=== PATIENT | female | born 1965 | race Caucasian/White ===

== ENCOUNTER 2021-04-26 05:40 | Inpatient (IN) | payer MEDICAID ==
[~2021-04-26] VITALS: Ht 157.5 cm; Wt 54.4 kg
[2021-04-26] MEDS ORDERED: HALOPERIDOL LACTATE 5MG/ML VIAL IM ONE (07:15)
[2021-04-26 08:17] LABS: CHLORIDE 106 mEq/L (98-107)
[2021-04-26 08:25] LABS: ETHANOL BLOOD < 10 mg/dL
[2021-04-26 08:37] LABS: HEMATOCRIT. 42.9 % (36.0-48.0); HEMOGLOBIN. 14.2 g/dL (12.0-16.0); MEAN CORPUSCULAR HEMOGLOBIN 30.5 pg (28.0-32.0); MEAN CORPUSCULAR VOLUME 92.4 fL (81.0-99.0); MEAN PLATELET VOLUME 10.4 fl (7.4-10.4); PLATELET 250 x1000/uL (130-400); RED BLOOD CELL COUNT 4.65 mill/uL (4.2-5.4); RED CELL DISTRIBUTION WIDTH 14.2 % (11.6-14.6)
[2021-04-26 09:05] LABS: PLATELET ESTIMATE NORMAL
[2021-04-26] MEDS ORDERED: TETANUS, DIPHTHERIA, PERTUSSIS VAC/PF 0.5ML (>10YR OLD) IM ONE (11:45)
[2021-04-26] MEDS ORDERED: FLUORESCEIN SODIUM 1MG/STRIP BOTHEYE ONE (11:45)
[2021-04-26] MEDS ORDERED: TETRACAINE 0.5% OPHTH DROPS 4ML BOTHEYE ONE (11:45)
[2021-04-26 13:24] LABS: CLARITY URINE CLEAR (CLEAR); COLOR URINE YELLOW (YELLOW); KETONES URINE NEGATIVE (NEGATIVE); LEUKOCYTE ESTERASE URINE TRACE (NEGATIVE); NITRITE URINE NEGATIVE (NEGATIVE); OCCULT BLOOD URINE NEGATIVE (NEGATIVE); PH URINE 8.5 (4.5-8.0); PROTEIN URINE NEGATIVE (NEGATIVE); SPECIFIC GRAVITY URINE 1.014 (1.005-1.030); UROBILINOGEN URINE 0.2 E.U./dL (0.2-1.0)
[2021-04-26 13:40] LABS: *AMPHETAMINES SCREEN URINE NEGATIVE (NEGATIVE); *BARBITURATES SCREEN URINE NEGATIVE (NEGATIVE); *BENZODIAZEPINES SCREEN URINE NEGATIVE (NEGATIVE); *COCAINE SCREEN URINE PRESUMTIVE POSITIVE (NEGATIVE)
[2021-04-26 13:41] LABS: CANNABINOID URINE SCREEN NEGATIVE (NEGATIVE); METHADONE URINE SCREEN NEGATIVE (NEGATIVE); OPIATES URINE SCREEN NEGATIVE (NEGATIVE); PHENCYCLIDINE URINE SCREEN NEGATIVE (NEGATIVE)
[2021-04-26] MEDS ORDERED: ONDANSETRON HCL 4MG/2ML INJ IV STA (16:02)
[2021-04-26] MEDS ORDERED: FAMOTIDINE 20MG/2ML VIAL IV NR (16:15)
[2021-04-26] MEDS ORDERED: SODIUM CHLORIDE 0.9% 1,000 ML IV ONE (16:15)
[2021-04-26 22:25] VITALS: BP 138/72
[2021-04-26 22:30] VITALS: BP 138/72
[2021-04-26] MEDS ORDERED: LORAZEPAM 2MG/ML CPJ IV PRN (23:15)
[2021-04-26] MEDS ORDERED: ONDANSETRON HCL 4MG/2ML INJ IV PRN (23:15)
[2021-04-27] VITALS: BP 128/71
[2021-04-27] MEDS: SODIUM CHLORIDE 0.9% 1,000 ML IV SCH ×3 (00:28→21:21)
[2021-04-27 04:00] VITALS: BP 116/77
[2021-04-27 07:27] LABS: CHLORIDE 111 mEq/L (98-107)
[2021-04-27 07:30] LABS: BASOPHILS % 0.7 % (0.0-2.0); HEMATOCRIT. 42.6 % (36.0-48.0); LYMPHOCYTES % 12.1 % (20.0-50.0); MEAN CORPUSCULAR HEMOGLOBIN 30.8 pg (28.0-32.0); MEAN CORPUSCULAR VOLUME 93.9 fL (81.0-99.0); MEAN PLATELET VOLUME 11.2 fl (7.4-10.4); MONOCYTES % 6.4 % (2.0-8.0); NEUTROPHILS % 79.8 % (40.0-76.0); PLATELET 194 x1000/uL (130-400); RED BLOOD CELL COUNT 4.54 mill/uL (4.2-5.4); RED CELL DISTRIBUTION WIDTH 14.4 % (11.6-14.6)
[2021-04-27 08:00] VITALS: BP 115/65
[2021-04-27] MEDS: PANTOPRAZOLE SODIUM 40 MG/VIAL IV SCH (09:53)
[2021-04-27 12:00] VITALS: BP 137/77
[2021-04-27 16:00] VITALS: BP 110/73
[2021-04-27 20:00] VITALS: BP 111/68
[2021-04-28] VITALS: BP 137/75
[2021-04-28 04:00] VITALS: BP 116/62
[2021-04-28] MEDS: SODIUM CHLORIDE 0.9% 1,000 ML IV SCH ×2 (04:59→15:35)
[2021-04-28 08:00] VITALS: BP 122/65
[2021-04-28] MEDS: PANTOPRAZOLE SODIUM 40 MG/VIAL IV SCH (08:33)
[2021-04-28 12:00] VITALS: BP 108/69
[2021-04-28 16:00] VITALS: BP 109/65
[2021-04-28] MEDS: ACETAMINOPHEN 325MG TABLET PO PRN (18:03)
[2021-04-28 20:00] VITALS: BP 128/69
[2021-04-29] VITALS: BP 121/60
[2021-04-29 04:00] VITALS: BP 124/77
[2021-04-29] MEDS: SODIUM CHLORIDE 0.9% 1,000 ML IV SCH ×3 (05:21→22:00)
[2021-04-29 08:00] VITALS: BP_SYST 115; BP_SYST 132; BP_DIAS 60; BP_DIAS 73
[2021-04-29] MEDS: FAMOTIDINE 20MG TABLET PO SCH ×2 (08:56→20:00)
[2021-04-29 12:05] VITALS: BP 114/60
[2021-04-29] MEDS: ACETAMINOPHEN 325MG TABLET PO PRN (12:21)
[2021-04-29 16:00] VITALS: BP 125/77
[2021-04-29 19:59] VITALS: BP 125/77
[2021-04-30] VITALS: BP 127/71
[2021-04-30] MEDS: ACETAMINOPHEN 325MG TABLET PO PRN (03:28)
[2021-04-30 03:29] VITALS: BP 134/72
[2021-04-30 08:00] VITALS: BP 123/78
[2021-04-30] MEDS: FAMOTIDINE 20MG TABLET PO SCH (08:04)
[2021-04-30] MEDS: SODIUM CHLORIDE 0.9% 1,000 ML IV SCH (08:06)
[2021-04-30 12:00] VITALS: BP 111/73
[2021-04-30 14:50] VITALS: BP 111/73
== END 2021-04-30 15:53 | disposition home or self-care (01) | DRG 52 ==
LOC: ER 05:40 → 8WST 18:50 → EDBEDREQ 19:32 → EDBEDREQTM 19:32 → ENRESERV 20:14
PROVIDERS: ADMIT Internal Medicine; ATTEND Internal Medicine
DX: G92.9 Unspecified toxic encephalopathy (principal); F29 Unspecified psychosis not due to a substance or known physiological condition; R41.82 Altered mental status, unspecified; F14.90 Cocaine use, unspecified, uncomplicated; Y93.89 Activity, other specified; J32.0 Chronic maxillary sinusitis; Y04.8XXA Assault by other bodily force, initial encounter; Y92.89 Other specified places as the place of occurrence of the external cause; Y99.8 Other external cause status; S01.111A Laceration without foreign body of right eyelid and periocular area, initial encounter; Z20.822 Contact with and (suspected) exposure to COVID-19
CPT/HCPCS: 36415; 70486; 71045; 80048; 80053; 80305; 80307; 80320; 80329; 81003; 82962; 84484; 85025; 87426; 90715; 93005; 99285; C1893; C9113; J1630; J2405; J3490; J7030; G0480

== ENCOUNTER 2022-03-28 16:49 | Inpatient (IN) | payer MEDICAID ==
[~2022-03-28] VITALS: Ht 160 cm; Wt 59.0 kg
[2022-03-28] MEDS ORDERED: MORPHINE SULFATE 4 MG/ML CPJ (NOT FOR IM USE) IV STA (18:28)
[2022-03-28] MEDS ORDERED: ONDANSETRON HCL 4MG/2ML INJ IV STA (18:28)
[2022-03-28] MEDS ORDERED: SODIUM CHLORIDE 0.9% 1,000 ML IV ONE (18:30)
[2022-03-28] MEDS ORDERED: VISCOUS LIDOCAINE 2% 15 ML UDC PO STA (20:36)
[2022-03-28] MEDS ORDERED: MAGNESIUM/ALUMINUM HYDROXIDE/SIMETHICONE 30ML UDC PO STA ×2 (20:36)
[2022-03-28] MEDS ORDERED: PANTOPRAZOLE SODIUM 40 MG/VIAL IV ONE (20:45)
[2022-03-28 22:09] LABS: CHLORIDE 107 mEq/L (98-107)
[2022-03-28] MEDS ORDERED: LABETALOL HCL VIAL 20 MG/4 ML VIAL IV NR (22:30)
[2022-03-28] MEDS ORDERED: LABETALOL 5MG/ML SYR 20 MG/4 ML SYRINGE IV NR (22:30)
[2022-03-28 23:12] LABS: BASOPHILS % 1.2 % (0.0-2.0); EOSINOPHILS % 0.9 % (0.0-5.0); HEMOGLOBIN. 13.9 g/dL (12.0-16.0); LYMPHOCYTES % 32.3 % (20.0-50.0); MEAN CORPUSCULAR HEMOGLOBIN 30.4 pg (28.0-32.0); MEAN CORPUSCULAR VOLUME 94.1 fL (81.0-99.0); MEAN PLATELET VOLUME 11.4 fl (7.4-10.4); MONOCYTES % 7.4 % (2.0-8.0); NEUTROPHILS % 58.2 % (40.0-76.0); PLATELET 71 x1000/uL (130-400); RED BLOOD CELL COUNT 4.57 mill/uL (4.2-5.4); RED CELL DISTRIBUTION WIDTH 14.5 % (11.6-14.6)
[2022-03-29] MEDS ORDERED: MORPHINE SULFATE 4 MG/ML CPJ (NOT FOR IM USE) IV ONE (00:30)
[2022-03-29] MEDS ORDERED: IOHEXOL-300 100 ML BOTTLE ONE (01:39)
[2022-03-29 05:10] VITALS: BP 118/76
[2022-03-29] MEDS ORDERED: LORAZEPAM 0.5MG TABLET PO PRN (06:45)
[2022-03-29] MEDS: SODIUM CHLORIDE 0.9% 1,000 ML IV SCH ×2 (06:45→20:05)
[2022-03-29] MEDS ORDERED: IPRATROPIUM/ALBUTEROL 0.5-3(2.5)MG/3ML NEB HHN PRN (06:45)
[2022-03-29] MEDS ORDERED: DOCUSATE SODIUM 100MG CAPSULE PO PRN (06:45)
[2022-03-29] MEDS ORDERED: HYDROCODONE/ACETAMINOPHEN 5/325MG TABLET PO PRN (06:45)
[2022-03-29] MEDS ORDERED: ACETAMINOPHEN 325MG TABLET PO PRN ×2 (06:45)
[2022-03-29] MEDS ORDERED: CLONIDINE 0.1MG TABLET PO PRN (06:45)
[2022-03-29] MEDS ORDERED: NALOXONE HCL 0.4MG/ML VIAL IV PRN (07:00)
[2022-03-29 08:00] VITALS: BP 132/74
[2022-03-29] MEDS: ONDANSETRON HCL 4MG/2ML INJ IV PRN (11:34)
[2022-03-29 12:00] VITALS: BP 133/76
[2022-03-29] MEDS: PANTOPRAZOLE SODIUM 40 MG/VIAL IV SCH ×2 (14:40→20:49)
[2022-03-29 16:00] VITALS: BP 137/78
[2022-03-29] MEDS ORDERED: GABA-529 PO (17:13)
[2022-03-29] MEDS ORDERED: QUET25TA36 PO (17:13)
[2022-03-29] MEDS ORDERED: SIME125C MT (17:13)
[2022-03-29] MEDS ORDERED: HYDROCODONE/ACETAMINOPHEN 10/325MG TABLET PO PRN (18:15)
[2022-03-29] MEDS ORDERED: MORPHINE SULFATE 2 MG/ML CPJ (NOT FOR IM USE) IV NR (18:15)
[2022-03-29 18:59] LABS: FERRITIN 12 ng/mL (10-291)
[2022-03-29 19:10] LABS: HEPATITIS B SURFACE ANTIGEN NEGATIVE
[2022-03-29 19:59] LABS: VITAMIN B12 SERUM 676 pg/mL (211-911)
[2022-03-29 20:00] VITALS: BP 119/69
[2022-03-30] VITALS: BP 114/62
[2022-03-30 04:00] VITALS: BP 137/70
[2022-03-30] MEDS: ONDANSETRON HCL 4MG/2ML INJ IV PRN (05:02)
[2022-03-30 08:00] VITALS: BP 129/61
[2022-03-30] MEDS ORDERED: MORPHINE SULFATE 2 MG/ML CPJ (NOT FOR IM USE) IV PRN (09:30)
[2022-03-30] MEDS ORDERED: METOCLOPRAMIDE HCL 10MG/2ML VIAL IV SCH ×2 (12:00)
[2022-03-30] MEDS ORDERED: SUCRALFATE 1 G/10 ML UDC PO SCH (12:20)
[2022-03-30] MEDS ORDERED: ATORVASTATIN CALCIUM 10MG TABLET PO SCH (21:00)
[2022-04-02 05:09] LABS: HIV SCREEN 4G Non Reactive (Non Reactive)
== END 2022-03-30 08:40 | disposition left against medical advice (07) | DRG 243 ==
LOC: ER 16:49 → MICUSO 03-29 00:28 → EDBEDREQ 03-29 00:32 → 6EST 03-29 04:50
PROVIDERS: ADMIT Internal Medicine; ATTEND Internal Medicine
DX: K20.91 Esophagitis, unspecified with bleeding (principal); D69.6 Thrombocytopenia, unspecified; K57.91 Diverticulosis of intestine, part unspecified, without perforation or abscess with bleeding; D64.9 Anemia, unspecified; K31.84 Gastroparesis; I10 Essential (primary) hypertension; F14.90 Cocaine use, unspecified, uncomplicated; Z86.73 Personal history of transient ischemic attack (TIA), and cerebral infarction without residual deficits; Z85.028 Personal history of other malignant neoplasm of stomach; Z87.891 Personal history of nicotine dependence; Z90.49 Acquired absence of other specified parts of digestive tract; Z53.29 Procedure and treatment not carried out because of patient's decision for other reasons
CPT/HCPCS: 36415; 71045; 74177; 76705; 80053; 80061; 82607; 82728; 82746; 83540; 83550; 83880; 84484; 85025; 86705; 86709; 86803; 86850; 86900; 87340; 87389; 93005; 99285; C1893; C9113; J2270; J2405; J3490; J7030; Q9967

== ENCOUNTER 2022-11-08 11:38 | Emergency (ER) | payer MEDICAID ==
[~2022-11-08] VITALS: Ht 165.1 cm; Wt 65.0 kg
[~2022-11-08 11:38] MED LIST: GABA-529 PO; QUET25TA36 PO; SIME125C MT
[2022-11-08 11:39] VITALS: O2SAT 99
[2022-11-08] MEDS ORDERED: KETOROLAC 60MG/2ML VIAL IM ONE (12:00)
[2022-11-08 13:45] VITALS: BP 120/80; PULSE 68; RESP 16; TEMP 98
== END 2022-11-08 13:46 | disposition home or self-care (01) ==
LOC: ER 11:38
DX: S99.912A Unspecified injury of left ankle, initial encounter (principal); F14.10 Cocaine abuse, uncomplicated; Z88.0 Allergy status to penicillin; Z98.890 Other specified postprocedural states; W18.30XA Fall on same level, unspecified, initial encounter; Y93.89 Activity, other specified; Y92.89 Other specified places as the place of occurrence of the external cause; Y99.8 Other external cause status
CPT/HCPCS: 73590; 73600; 73620; 96372; 99284; J1885; Z7610